=== PATIENT | male | born 1970 | race Asian ===

== ENCOUNTER 2021-07-09 00:19 | Emergency (ER) | payer OTHER ==
[~2021-07-09] VITALS: Ht 188 cm; Wt 142.9 kg
[2021-07-09 04:17] VITALS: BP 132/76; TEMP 98.7
== END 2021-07-09 04:17 | disposition home or self-care (01) ==
LOC: ED 00:19
PROC: 0XQP0ZZ Repair Left Index Finger, Open Approach (ICD-10-PCS; principal; 2021-07-09)
PROC: 0XQR0ZZ Repair Left Middle Finger, Open Approach (ICD-10-PCS; 2021-07-09)
PROC: 2W3KX1Z Immobilization of Left Finger using Splint (ICD-10-PCS; 2021-07-09)
DX: S61.412A Laceration without foreign body of left hand, initial encounter (principal); S61.223A Laceration with foreign body of left middle finger without damage to nail, initial encounter; S61.221A Laceration with foreign body of left index finger without damage to nail, initial encounter; V86.55XA Driver of 3- or 4- wheeled all-terrain vehicle (ATV) injured in nontraffic accident, initial encounter; Y92.89 Other specified places as the place of occurrence of the external cause
CPT/HCPCS: 90471; 90715; 99283; J7040